=== PATIENT | female | born 1970 | race American Indian/Alaskan Native ===

== ENCOUNTER 2016-09-15 07:34 | Inpatient (IN) | payer MEDICAID ==
[~2016-09-15 07:34] MED LIST: WATER FOR IRRIG STERILE IR ONE
--- NOTE | 2016-09-15 08:46 | Anesthesia Consultation ---
Anesthesia Consult and Med Hx Date of service: 09/15/16 - Airway Anesthetic Teeth Evaluation: Good ROM Head & Neck: Adequate Mental/Hyoid Distance: Adequate Mallampati Class: Class II Intubation Access Assessment: Good - Pulmonary Exam CTA: Yes - Cardiac Exam Cardiac Exam: RRR - Pre-Operative Health Status ASA Pre-Surgery Classification: ASA3 Proposed Anesthetic Plan: General (no previous GA problems-except rigors on awakening) - Pulmonary Hx Smoking: No Hx Sleep Apnea: Yes - Cardiovascular System Hx Hypertension: Yes (FOR 11 YRS; high cholesterol) - Central Nervous System Hx Psychiatric Problems: No - Endocrine Hx Non-Insulin Dependent Diabetes: Yes - Hematic Hx Anemia: Yes - Other Systems Hx Cancer: No Hx Obesity: Yes (morbid obesity)
--- NOTE | 2016-09-15 08:47 | Anesthesia Day of Surgery ---
Anesthesia Day of Surgery - Day of Surgery Patient Examined: Yes Patient H&P Reviewed: Yes Patient is NPO: Yes
[2016-09-15] MEDS ORDERED: ZEMURON IV ONE (09:00)
[2016-09-15] MEDS ORDERED: PEPCID IV NR (09:30)
[2016-09-15] MEDS ORDERED: NACL 0.9% 1000 ML 1,000 ML IV SCH (09:30)
[2016-09-15] MEDS ORDERED: TRANSDERM-SCOP TD NR (09:30)
[2016-09-15] MEDS ORDERED: VERSED IV NR (09:30)
[2016-09-15 09:34] LABS: Basophils % (Auto) 1.1 % (0.0-1.8); Eosinophils % (Auto) 0.9 % (0.0-4.3); Hemoglobin 11.9 gm/dl (10.1-14.3); Mean Corpuscular HGB Conc 32 % (30-34); Mean Corpuscular Hemoglobin 26 pg (28-32); Mean Corpuscular Volume 81 fl (79-97); Platelet Count 330 K/mm3 (140-440); Red Blood Count 4.55 M/mm3 (3.65-5.03); Red Cell Distribution Width 15.1 % (13.2-15.2); White Blood Count 7.4 K/mm3 (4.5-11.0)
[2016-09-15 09:53] LABS: Alanine Aminotransferase 17 units/L (7-56); Albumin 3.8 g/dL (3.9-5); Albumin/Globulin Ratio 1.1 %; Alkaline Phosphatase 45 units/L (35-129); Anion Gap 19 mmol/L; BUN/Creatinine Ratio 14.28; Blood Urea Nitrogen 10 mg/dL (7-17); Carbon Dioxide 22 mmol/L (22-30); Chloride 103.5 mmol/L (98-107); Glucose 79 mg/dL (65-100); Sodium 140 mmol/L (137-145); Total Protein 7.4 g/dL (6.3-8.2)
[2016-09-15] MEDS ORDERED: FLAGYL 500 MG/100 ML 500 MG/100 ML BAG IV NR (10:00)
[2016-09-15] MEDS ORDERED: LOVENOX SUB-Q NR (10:00)
[2016-09-15] MEDS ORDERED: ANCEF/STERILE WATER 2 GM/20 ML IV NR (10:00)
[2016-09-15] MEDS ORDERED: XYLOCAINE 1% 20 mL ONE (10:17)
[2016-09-15] MEDS ORDERED: MARCAINE-EPI/PF 0.5%-1:200,000 INFILTRATI ONE ×2 (10:17→13:28)
[2016-09-15] MEDS ORDERED: REGLAN IV PRN (11:03)
[2016-09-15] MEDS ORDERED: APRESOLINE IV PRN (11:03)
[2016-09-15] MEDS ORDERED: ZOFRAN IV PRN (11:03)
[2016-09-15] MEDS ORDERED: D50W (25GM) IV PRN (11:10)
[2016-09-15] MEDS ORDERED: DIPRIVAN 10 MG/ML IV ONE (11:16)
[2016-09-15] MEDS ORDERED: DILAUDID ONE (11:16)
[2016-09-15] MEDS ORDERED: DECADRON ONE (11:17)
[2016-09-15] MEDS ORDERED: XYLOCAINE MPF 2% ONE (11:17)
[2016-09-15] MEDS ORDERED: ZOFRAN ONE (11:21)
[2016-09-15] MEDS ORDERED: NEOSTIGMINE ONE (13:12)
[2016-09-15] MEDS ORDERED: ROBINUL ONE (13:12)
--- NOTE | 2016-09-15 13:22 | Operative Report ---
Operative Report Operative Report: Operative Report DATE OF PROCEDURE: 09/15/16 PREOPERATIVE DIAGNOSES: Morbid obesity, hiatal hernia POSTOPERATIVE DIAGNOSES: 1.same as pre-op SURGEON: Ulises Sauceda M.D. IMPORT SPECIALIST: Tal Wang CSA PROCEDURE: 1. laparoscopic sleeve gastrectomy 2. laparoscopic hiatal hernia repair ANESTHESIA: General. ESTIMATED BLOOD LOSS: <5 mL. COMPLICATIONS: None. SPECIMEN: Partial gastrectomy. FINDINGS: 1. hiatal hernia INDICATION FOR PROCEDURE: Patient is a 46-year-old female with a long history of morbid obesity. She has tried multiple efforts at weight loss without meat slicer success. She is here today for sleeve gastrectomy. PROCEDURE IN DETAIL: After consent was reviewed, patient was taken back to the operating room, where patient was placed supine on the bed with both arms out. The patient's legs were doubly strapped to the bed. Patient had a foot board in place. Patient had a body warmer placed by anesthesia. Patient was then prepped and draped in normal sterile surgical fashion. After a time-out was called, I made a stab incision in the umbilicus and placed a Veress needle through this incision and insufflated the abdomen to 18 mmHg pressure. I then counted down a handsbreadth below the xiphoid process in the midline and slightly left lateral injected local anesthetic and made about 1.5 cm transverse incision. I then used a 5-mm Optiview trocar to enter into the abdomen. I then placed a 45- degree scope through this port and inspected the abdomen. There was no injury on entry of the abdomen. I then placed two 5-mm ports in the right upper quadrant, one along the anterior axillary line and 1 subxiphoid below the costovertebral angle. I then placed a 15-mm port about a handsbreadth left lateral and inferior to my anterior axillary port. I then placed left upper quadrant port along the anterior axillary line in a similar fashion. I then placed the liver retractor through the subxiphoid port and placed the patient in full reverse Trendelenburg. The right and left crura were skeletonized accentuating a small hiatal hernia. An anterior cruraplasty was perfromed with a figure-of-8 stitch using surgidac suture to reapproximate the crura. I then identified the pylorus and then counted off 6cm from the pylorus. I then used a LigaSure cutting device to enter into the lesser sac. At that point and then I took down the short gastrics all the way up to the left marvin. Then I had anesthesia pass down a 36-English bougie along the lesser curvature of the stomach. I made sure everything else was out of the abdomen except the bougie. I then created my gastric sleeve using a 60-mm laparoscopic stapler. . The sleeve looked good without any twisting or torsion. I then had anesthesia to remove the bougie. Hemostasis was obtained along the staple line. I then used Tiseel along the entirety of the staple line and some on the liver. I then removed liver grasper and took it off the field. I then removed the stomach through the 15-mm port. I then closed that fascia with a #1 PDS in a pkiamw-yo-plpcm fashion using a Naren-Jhonatan. I then desufflated the abdomen and then removed all port sites. I then closed the incisions with 4-0 Monocryl in subcuticular fashion. I then dressed the wounds with Dermabond. Patient tolerated the procedure well and was transferred to recovery room in good and stable condition.
[2016-09-15] MEDS ORDERED: XYLOCAINE 1% 20 mL INFILTRATI ONE (13:28)
[2016-09-15] MEDS ORDERED: NACL 0.9% IR ONE (13:28)
--- NOTE | 2016-09-15 13:37 | Admit Criteria Form ---
Admission Criteria Documentation: AMBULATORY SURGERY EXCEPTION CRITERIA Ambulatory Surgery Exception Criteria ( Place 'X' for any and all applicable criteria): Surgery or procedure performed on ambulatory basis may require inpatient stay for[A] ANY ONE of the following(1)(2)(3)(4)(5)(6)(7)(8)(9): [X] I. A preoperative situation, condition, or finding that warrants inpatient stay as indicated by ANY ONE of the following: [] a) Inpatient care needed because of severity of a disease or condition rather than the surgery (eg, severe cardiac or respiratory disease, severe infection) (15) (16 ) (17) (18) [] b) Emergent procedure (eg, angioplasty for acute ischemia)(19) [] c) Complex surgical approach or situation as indicated by ANY ONE of the following(3): [] i) Open approach needed instead of usual endoscopic, transcatheter, or other less invasive procedure [] ii) Difficult approach because of previous operation [] iii) Airway monitoring required after open neck procedures(20)(21) [] iv) Large mass requiring unusually extensive dissection [] v) Additional complicating feature requiring inpatient care (eg, drain management)(22(23): [X] d) Major surgery in a pt with high anesthetic risk as indicated by ANY ONE of the following (2)(3)(5)(7)(8): [X] i) ASA risk class III or higher (severe systemic disease impairing function) [D] [] ii) Advanced age (eg, older than 85 years)(14)(24) [] iii) Symptomatic heart failure(25) [] iv) Symptomatic asthma or COPD(8)(21) [] v) Morbid obesity with hemodynamic or respiratory problems(20)( 21)(26)(27) [] vi) Obstructive sleep apnea(20)(21) [] vii) Former premature infants who are younger than 60 weeks [] viii) High risk for severe postoperative abnormalities (eg, severe postoperative hypocalcemia after parathyroidectomy for severe hyperparathyroidism)(27)( 28) [] ix) Unstable angina(25) [] e) Drug-related risk requiring inpatient stay as indicated by ANY ONE of the following(5)(10)(14)(32)(33) [] i) Procedure requires discontinuing drugs or other therapy (eg , antiarrhythmic medication, antiseizure medication), which necessitates inpatient observation or treatment.(18)(31) [] ii) Major surgery and high risk drug use as indicated by ANY ONE of the following: [] 1) Active abuse of cocaine or similar drug [] 2) Monoamine oxidase inhibitor use [] 3) Other drug identified as posing risk [] f) Inadequate outpatient care situation as indicated by ANY ONE of the following(5)(10)(14)(32)(33) [] i) Patient lives remote from medical facility and procedure has urgent complication potential, and temporary nearby residence cannot be arranged [] ii) Patient will have postprocedure incapacitation and inadequate assistance at home, or alternative level of care cannot be arranged. [] iii) Patient will have long general anesthesia or procedure side effect resolution time, and competent person to stay with patient on first postoperative night at home or alternative level of care cannot be arranged. []iv) Other inadequate outpatient situation that cannot be handled by other means [] II. A perioperative event, condition, or finding that warrants inpatient stay as indicated by ANY ONE of the following (1)(2)(3): [] a) Inadequate physiologic recovery: cardiovascular, respiratory, or hemodynamic status not normal or near preoperative baseline(18) [] b) Hemodynamic instability [] c) Patient not alert with near normal or baseline mental status [] d) Temperature not normal or as expected and not appropriate for outpatient treatment of condition [] e) Ambulatory or appropriate activity level status not yet achieved post procedure [E](34)(35)(36) [] f) Operative site not appropriate (eg, unexpected or excessive drainage or bleeding) [] g) Postoperative effects not resolved or adequately managed (eg, significant pain or vomiting not appropriate for outpatient or next level of care)(10)(12) [] h) Complicating features requiring inpatient care as indicated by ANY ONE of the following(37): [] i) Severe complications of procedure (eg, bowel injury, airway compromise, vascular injury,severe hemorrhage) [] ii) Extensive (eg, dissection far beyond usual scope of procedure ) or prolonged (eg, 120 minutes beyond usual) surgery needed requiring inpatient postoperative care [] iii) Conversion to an open or complex procedure that requires inpatient care (eg, open vs laparoscopic cholecystectomy, abdominal vs vaginal hysterectomy)(38) [] iv) Comorbid condition or test result identified during or post procedure that requires inpatient care (7) [] v) Malignant hyperthermia(30) [] vi) Other complicating feature requiring inpatient care(22)(23) Inpatient stay may be needed until ALL of the following are present (1)(2)(3)(4) (5)(6)(10)(14)(33)(40): []a) Physiologic recovery: cardiovascular, respiratory, and hemodynamic status normal or near preoperative baseline []b) Hemodynamic stability []c) Patient alert, with near normal or baseline mental status []d) Temperature appropriate: patient afebrile or temperature appropriate for outpt treatment of condition []e) Activity level appropriate: ambulatory or appropriate activity level post procedure []f) Operative site appropriate as indicated by ALL of the following: []i) Site dry or with expected drainage []ii) Any blood noted is as expected for procedure. []g) Postoperative effects resolved or managed as indicated by ALL of the following: []i) Pain management appropriate for outpatient (or next level of) care(10) []ii) Minimal nausea and vomiting: if present, successfully treated with oral medication(12) []iii) Headache, dizziness, or drowsiness (if present) are mild. []h) Voiding status acceptable as indicated by ANY ONE of the following: []i) Voiding spontaneously []ii) No voiding but instructions given for follow-up in 6 to 8 hours []iii) Urinary catheter in place, and instructions given for follow-up []i) Complicating features requiring inpatient care manageable at a lower level of care(37) []j) Comorbid conditions manageable at a lower level of care(37) The original [employer] content created by [employer] has been revised. The portions of the content which have been revised are identified through the use of italic text or in bold, and [facility] [employer] has neither reviewed nor approved the modified material. All other unmodified content is copyright [employer]. Please see references footnoted in the original [employer] edition 2016 Admission Criteria Met: Yes
[2016-09-15] MEDS: TORADOL IV SCH ×2 (13:45→18:45)
[2016-09-15] MEDS ORDERED: FLAGYL 500 MG/100 ML 500 MG/100 ML BAG IV SCH (14:00)
[2016-09-15] MEDS: MYLICON PO PRN ×2 (14:14→21:11)
[2016-09-15] MEDS: NORCO PO PRN (14:26)
--- NOTE | 2016-09-15 14:39 | Post Anesthesia Evaluation ---
- Post Anesthesia Evaluation Patient Participated: Yes Airway Patent: Yes Stable Respiratory Function: Yes Nausea/Vomiting: No Temp > 96.8F: Yes Pain Manageable: Yes Adequeate Hydration: Yes Anesthesia Complications: No
[2016-09-15] MEDS: DILAUDID IV PRN ×2 (17:14→21:04)
[2016-09-15] MEDS: FLAGYL 500 MG/100 ML 500 MG/100 ML BAG IV SCH (21:12)
[2016-09-15] MEDS ORDERED: ZOCOR PO SCH (22:00)
[2016-09-15] MEDS ORDERED: ZESTRIL PO SCH (22:00)
[2016-09-15] MEDS: ANCEF/NS 1 GM/50 ML 1 GM/50 ML BAG IV SCH (22:32)
[2016-09-16] MEDS: DILAUDID IV PRN ×3 (00:15→10:00)
[2016-09-16] MEDS: TORADOL IV SCH ×3 (00:18→12:41)
[2016-09-16] MEDS: ANCEF/NS 1 GM/50 ML 1 GM/50 ML BAG IV SCH (00:55)
[2016-09-16] MEDS: LACTATED RINGERS 1,000 ML IV SCH ×2 (02:01→09:56)
[2016-09-16] MEDS ORDERED: ANCEF/NS 1 GM/50 ML 1 GM/50 ML BAG IV SCH (06:00)
[2016-09-16] MEDS: FLAGYL 500 MG/100 ML 500 MG/100 ML BAG IV SCH (06:30)
[2016-09-16 06:43] LABS: Basophils % (Auto) 0.3 % (0.0-1.8); Hematocrit 36.3 % (30.3-42.9); Hemoglobin 11.3 gm/dl (10.1-14.3); Mean Corpuscular HGB Conc 31 % (30-34); Mean Corpuscular Hemoglobin 26 pg (28-32); Mean Corpuscular Volume 83 fl (79-97); Platelet Count 337 K/mm3 (140-440); Red Blood Count 4.38 M/mm3 (3.65-5.03); Red Cell Distribution Width 15.3 % (13.2-15.2); White Blood Count 10.9 K/mm3 (4.5-11.0)
[2016-09-16 06:55] LABS: Alanine Aminotransferase 27 units/L (7-56); Albumin 3.3 g/dL (3.9-5); Albumin/Globulin Ratio 0.9 %; Alkaline Phosphatase 42 units/L (35-129); Anion Gap 19 mmol/L; BUN/Creatinine Ratio 16.66; Blood Urea Nitrogen 10 mg/dL (7-17); Calcium 8.3 mg/dL (8.4-10.2); Carbon Dioxide 20 mmol/L (22-30); Chloride 103.4 mmol/L (98-107); Glucose 105 mg/dL (65-100); Sodium 137 mmol/L (137-145)
[2016-09-16 07:22] LABS: Potassium 4.9 mmol/L (3.6-5.0)
[2016-09-16] MEDS ORDERED: LOVENOX SUB-Q SCH (10:00)
[2016-09-16] MEDS: NORCO PO PRN ×3 (14:15→21:24)
[2016-09-16 16:33] VITALS: BP 140/81
[2016-09-16] MEDS: MYLICON PO PRN (21:29)
== END 2016-09-16 21:30 | disposition home or self-care (01) | DRG 620 ==
LOC: 3A 07:49 → 2B-SURG 14:02
PROVIDERS: ADMIT Surgery; ATTEND Surgery
PROC: 0DB64Z3 Excision of Stomach, Percutaneous Endoscopic Approach, Vertical (ICD-10-PCS; principal; 2016-09-15)
PROC: 0BQS4ZZ (ICD-10-PCS; 2016-09-15)
PROC: 0BQR4ZZ (ICD-10-PCS; 2016-09-15)
DX: E66.01 Morbid (severe) obesity due to excess calories (principal); E44.1 Mild protein-calorie malnutrition; K44.9 Diaphragmatic hernia without obstruction or gangrene; Z68.43 Body mass index [BMI] 50.0-59.9, adult; I10 Essential (primary) hypertension; E11.9 Type 2 diabetes mellitus without complications; G47.33 Obstructive sleep apnea (adult) (pediatric)
CPT/HCPCS: 36415; 80053; 81025; 82962; 85025; 88307; C9250; J0690; J1100; J1170; J1650; J1885; J2250; J2405; J2704; J2710; J7030; J7120